=== PATIENT | male | born 1975 | race Asian ===

== ENCOUNTER 2017-06-24 12:14 | Day surgery (SDC) | payer OTHER ==
[2017-06-23 13:30] VITALS: BMI 26.1
--- NOTE | 2017-06-24 11:42 | HP ---
Satellite [facility] - Chief Complaint Chief Complaint: left achilles tendon rupture - Past Medical History Allergies/Adverse Reactions: Allergies Allergy/AdvReac Type Severity Reaction Status Date / Time No Known Allergies Allergy Verified 06/23/17 13:30 - Current Medications Current Medications: Home Medications Medication Instructions Recorded Oxycodone HCl/Acetaminophen 1 - 2 tab PO Q6H #50 tab MDD 8 06/24/17 [Percocet 5-325 mg Tablet -] Satellite Physical Exam - Physical Examination General Appearance: Well Nourished, Well Developed, Alert & Oriented x3 ENT: Clear Lung: Normal air movement Heart: Regular rate & rhythm Extremities: Other (left ankle- + swelling, + ttp, + defect in achilles, unable to heel raise, nvi) Neurological: Intact, Alert, Oriented Satellite Impression/Plan - Impression/Plan Impression: left achilles tendon rupture Operative Procedure: left achilles tendon repair Date to be Performed: 06/24/17
[2017-06-24] MEDS ORDERED: MIDAZOLAM HCL 2 MG/2 ML SINGLE DOSE VIAL ONE ×2 (12:59→13:49)
[2017-06-24] MEDS ORDERED: ROPIVACAINE HCL 0.5% 30ML VIAL ONE (12:59)
[2017-06-24] MEDS ORDERED: LIDOCAINE 1% P/F 10 MG/ML VIAL ONE (13:03)
[2017-06-24] MEDS ORDERED: SUCCINYLCHOLINE CHLORIDE 200 MG/10 ML VIAL ONE (13:34)
[2017-06-24] MEDS ORDERED: PROPOFOL 20 ML ONE ×2 (13:34)
[2017-06-24] MEDS ORDERED: ceFAZolin SODIUM 1 GM VIAL ONE (13:44)
--- NOTE | 2017-06-24 14:45 | OP ---
Operative Note - Note: Operative Date: 06/24/17 (elvira) Pre-Operative Diagnosis: left achilles tendon rupture Operation: left achilles tendon repair Post-Operative Diagnosis: Same as Pre-op Surgeon: Lucien Santos [employer] Worker: Darren Wood Anesthesiologist/PEDIATRIC NP: Leela Mendoza Anesthesia: General, Local Estimated Blood Loss (mls): 5 (tourniquet) Operative Report Dictated: Yes
[2017-06-24] MEDS ORDERED: ONDANSETRON 4 MG/2 ML VIAL IVPUSH PRN (14:52)
[2017-06-24] MEDS ORDERED: oxyCODONE HCL 5 MG TABLET PO PRN (14:52)
[2017-06-24] MEDS ORDERED: LACTATED RINGERS SOLUTION 1,000 ML IV SCH (15:00)
[2017-06-24 15:24] VITALS: TEMP 97.5
[2017-06-24 16:38] VITALS: PULSE 69
[2017-06-24 19:40] VITALS: BP 126/78
--- NOTE | 2017-06-25 08:54 | OP ---
DATE OF OPERATION: 06/24/2017 PREOPERATIVE DIAGNOSIS: Left Achilles tendon rupture greater than 2 months old. POSTOPERATIVE DIAGNOSIS: Left Achilles tendon rupture greater than 2 months old. PROCEDURE: Left Achilles tendon repair. SURGICAL ATTENDING: Lucien Santos MD FILTERATION OPERATOR: SARAH Armenta ANESTHESIA: Regional and spinal. CLOSURE: No. 2 FiberWire for Achilles, 2-0 Vicryl for subcutaneous, and 4-0 Monocryl subcuticular with skin glue for skin. ESTIMATED BLOOD LOSS: Negligible. TOURNIQUET TIME: Less than an hour. COMPLICATIONS: None. CONDITION: To recovery in stable condition. DESCRIPTION OF OPERATIVE PROCEDURE: Patient taken to the operating room on June 24, 2017. Regional and spinal anesthesia was administered by the anesthesiologist. IV Kefzol was administered prior to the case. Patient was placed in a prone position with all prominences well padded. A well-padded pneumatic tourniquet was placed on the left proximal calf away from the fibular head. Left lower extremity was prepped and draped in the usual sterile fashion. Leg was exsanguinated with an Esmarch bandage. Tourniquet was inflated to 250 mmHg. An 8- to 10-cm curvilinear incision over the gap in the Achilles tendon was incised in the skin with Bovie cautery. Sharp dissection was carried fully down to involve the tendon. The tendon was encased in primitive repair tissue as the injury happened greater than 2 months ago. Clot and scar tissue in and around the gap were curetted and debrided. The plantaris tendon was found in the scar and was used and weaved into the repair to allow fixation. A few centimeters of scar tissue needed to be removed to freshen up the ends of the tendon from the proximal stump. The distal stump was small, but it was in place. The tendon needed to be mobilized proximally and the fascial incision was made underneath the skin up the calf in order to help mobilize the tendon. There was also an open fascia incision made anteriorly to bring in further blood supply into the incision. No. 2 FiberWire was weaved up and down the sides of the tendon in a running locking baseball suture, No 2 FiberWires proximally and 2 distally constituting 8 limbs. With the ankle in an equinus position, the sutures were tied 1 to another, achieving a good end-to-end repair with no undue tension. Incision was irrigated out with copious amounts of antibiotic irrigation and the subcutaneous was then closed using 2-0 Vicryl and 3-0 Monocryl subcuticular with skin glue for skin. A sterile pressure dressing followed by a posterior splint with the ankle held in an equinus position but not in forced equinus. Patient awakened from anesthesia and transferred to recovery room in stable condition. No complications. Estimated blood loss negligible. Herlinda [id number]
== END 2017-06-24 19:50 | disposition home or self-care (01) ==
LOC: FASU 12:14
PROVIDERS: ATTEND Orthopaedic Surgery
PROC: 0LQP0ZZ Repair Left Lower Leg Tendon, Open Approach (ICD-10-PCS; principal; 2017-06-24 13:57)
DX: S86.012A Strain of left Achilles tendon, initial encounter (principal); X58.XXXA Exposure to other specified factors, initial encounter; Y93.9 Activity, unspecified; Y92.9 Unspecified place or not applicable
CPT/HCPCS: 94760